=== PATIENT | male | born 1975 | race Caucasian/White ===

== ENCOUNTER 2016-08-05 16:13 | Emergency (ER) | payer OTHER ==
[~2016-08-05 16:13] MED LIST: TRAMADOL HCL50 MG PO; XARELTO15 MG PO; ZANTAC25 MG/1 ML PO
== END 2016-08-05 21:17 | disposition left against medical advice (07) ==
LOC: ER1 16:13
DX: Z53.21 Procedure and treatment not carried out due to patient leaving prior to being seen by health care provider (principal)
CPT/HCPCS: 70450; 93005

== ENCOUNTER → 2020-03-30 | Outpatient (CLI) | payer OTHER ==
[~2020-03-30] MED LIST changes: +BACTRIM DS TAB1 EACH PO; +KEFLEX CAP 500500 MG PO; +LEVAQUIN750 MG PO
== END ==
LOC: KOH-I 14:38
DX: M79.672 Pain in left foot (principal); M79.671 Pain in right foot
CPT/HCPCS: 73630

== ENCOUNTER → 2020-10-14 | Outpatient (CLI) | payer OTHER | LOC: CT 14:00 | DX: I82.401 Acute embolism and thrombosis of unspecified deep veins of right lower extremity (principal); D45 Polycythemia vera; M89.9 Disorder of bone, unspecified | CPT/HCPCS: 36415; 73701; 82565; Q9967 ==